=== PATIENT | male | born 1945 | race Hispanic/Latino ===

== ENCOUNTER 2016-10-01 07:11 | Inpatient (IN) | payer MEDICARE, OTHER ==
[2016-10-01 07:55] LABS: Basophils % (Auto) 0.6 % (0.0-1.8); Eosinophils % (Auto) 2.4 % (0.0-4.3); Hematocrit 43.6 % (35.5-45.6); Hemoglobin 14.7 gm/dl (11.8-15.2); Mean Corpuscular HGB Conc 34 % (32-34); Mean Corpuscular Hemoglobin 30 pg (28-32); Mean Corpuscular Volume 88 fl (84-94); Platelet Count 199 K/mm3 (140-440); Red Blood Count 4.96 M/mm3 (3.65-5.03); Red Cell Distribution Width 14.5 % (13.2-15.2); White Blood Count 9.2 K/mm3 (4.5-11.0)
[2016-10-01] MEDS ORDERED: NACL 0.9% 500 ML 500 ML IV SCH (08:00)
[2016-10-01 08:06] LABS: INR 1.03 (0.87-1.13)
[2016-10-01 08:12] LABS: Anion Gap 16 mmol/L; Blood Urea Nitrogen 18 mg/dL (9-20); Calcium 9.1 mg/dL (8.4-10.2); Carbon Dioxide 24 mmol/L (22-30); Chloride 98.7 mmol/L (98-107); Glucose 143 mg/dL (75-100); Sodium 135 mmol/L (137-145)
[2016-10-01] MEDS ORDERED: HEPARIN/NS 5000 UNIT/500ML(CATH LAB) 1,000 ML IR ONE (08:33)
[2016-10-01] MEDS ORDERED: NITROGLYCERIN SYRINGE 3 ML ONE (08:38)
[2016-10-01] MEDS: XYLOCAINE 2% INFILTRATI ONE ×2 (08:52→09:08)
[2016-10-01] MEDS: SUBLIMAZE ONE ×2 (08:52→09:05)
[2016-10-01] MEDS: CALAN ONE ×2 (08:52→19:05)
[2016-10-01] MEDS: VERSED ONE ×2 (08:52→09:05)
[2016-10-01] MEDS: HEPARIN 10,000 UNITS/10 ML ONE ×2 (08:53→19:05)
[2016-10-01] MEDS ORDERED: NACL 0.9% 100 ML ONE (09:20)
[2016-10-01] MEDS ORDERED: WATER FOR INJ (PF) 10 ML ONE (09:20)
[2016-10-01] MEDS ORDERED: NACL 0.9% 1000 ML 1,000 ML ONE (09:27)
[2016-10-01] MEDS: ANGIOMAX IV ONE ×2 (09:30→09:38)
[2016-10-01] MEDS ORDERED: PLAVIX ONE (09:36)
[2016-10-01] MEDS ORDERED: ALUM-MAG HYDROX-SIMETH 200-200-20MG/5ML ONE (09:36)
[2016-10-01] MEDS ORDERED: ULTRAM PO PRN (10:28)
[2016-10-01] MEDS ORDERED: AMBIEN PO PRN (10:28)
[2016-10-01] MEDS ORDERED: ZOFRAN IV PRN (10:28)
[2016-10-01] MEDS ORDERED: NACL 0.9% 1000 ML 1,000 ML IV SCH (11:00)
[2016-10-01] MEDS ORDERED: D50W (25GM) IV PRN (11:13)
--- NOTE | 2016-10-01 11:31 | Cardiac Catherization Report ---
LEFT HEART CATHETERIZATION/PERCUTANEOUS CORONARY PORT/MAMMARY INJECTION AND SVG GRAFT INJECTIONS CLINICAL INFORMATION: This is a 71-year-old gentleman with history of smoker, hypertension, hyperlipidemia, 10 years ago had bypass, KOVACS to LAD, SVG to OM1, SVG to OM2 and SVG to PDA has peripheral vascular disease has claudication symptoms a smoker, also has shortness of breath with exertion with inferior defect on stress test with normal IV function. The patient is on aspirin, beta-dustin, and also history of pacemaker. Left heart catheterization performed via the right common femoral artery, sterile technique, local anesthesia, 5-Pakistani groin sheath inserted. FINDINGS: 1. Left system and JL4 catheter, left main is a medium caliber vessel, mid 60% lesion. Circ ostial is 100%, LAD proximal 70%, and a mid 100%. RCA engaged with JR4 catheter, has a dominant vessel small caliber vessel, mid diffuse 80%. 2. SVG to PDA engaged with a JR4 catheter, is a large caliber graft, free of disease of the ostium at the body. There is a focal 80% lesion. Distal to PDA is patent, feeds into a small caliber PDA and PLV that is patent. 3. SVG to OM1 engaged with JR4, is a large caliber graft with mild luminal irregularities from the ostium, body, and anastomosis site feeding into small caliber OM1. 4. SVG to OM2 engaged with JR4 catheter, is a large caliber graft at the proximal diffuse 40 to 50% lesion smooth. The rest of the graft is free of disease from the mid to the distal anastomosis site feeding into a small to medium caliber OM2. 5. KOVACS to LAD was engaged with IM catheter, large caliber graft, free of disease at the ostium, body, and anastomosis site, feeds into the mid LAD with good retrograde and anterograde flow into small to medium caliber LAD and small diagonal. 6. LV gram done in the SERBIAN and PARKER view shows normal LV function. LVEDP of 4 mmHg. LV is 122/40. Aortic is 170/45. No gradient across the aortic valve on pullback. A percutaneous coronary intervention, SVG graft to PDA in view of patient's shortness of breath with exertion, Weston classification 3 on beta-dustin therapy and inferior defect proceeded with PCI as a 5-[place]istani groin sheath change out for 6-Pakistani groin sheath. Left system SVG graft engaged with a 6-[place]istani JR4 collaterals #2 crossed into the distal lesion with short Bessemer wire. 7. Using a distal protection device filter [id number]. 8. Direct stented with a drug-eluting Xience 3.5 x 12 at 12 atmospheres. 9. Repeat excellent angiographic result. No dissection or perforation, embolization noted. 10. Retrieved the distal protection device. 11. Repeat angiogram. Excellent angiographic results continued ISA 3 flow, reduced stenosis 0%. Chest pain free. 12. A 6-[place]istani guiding catheter sewn with guidewire, 6-Pakistani groin sheath was sewn. SUMMARY: 1. Successful PCI of the SVG graft to the PDA with a drug-eluting Xience 3.5 x 12 using a distal protection device. 2. Patent KOVACS to LAD and patent SVG graft to OM1. 3. SVG graft to OM2 as a diffuse proximal 40-50%, no catheter dampening noted and goes on OM2. 4. Left main, 60% LAD mid 100%, Circ ostial was 100%. RCA mid 80% with normal LV function. 5. The patient received 600 Plavix. Post-Cath care will be on aspirin and Plavix therapy. Discussed this in detail with the patient and the patient's family. JOB# [id number] DEBRA/TAI
--- NOTE | 2016-10-01 12:12 | Cardiac Catherization Report ---
LEFT HEART CATHETERIZATION CLINICAL INFORMATION: This 71-year-old is here for peripheral angiogram. This is a 71-year-old gentleman with known history of peripheral vascular disease with right iliac stenting who has been having claudication symptoms and shortness of breath, has history known bypass and 4-vessel and is here for peripheral angiogram. Peripheral angiogram performed via the left common femoral artery, sterile technique, local is a 5-[place] groin sheath inserted. Pigtail catheter was placed in the distal abdominal aorta and runoff was done and the following findings; 1. Distal abdominal patent mild luminal irregularities. Right common iliac stent is 100% due to extensive collateralization feeding into the right external iliac and internal iliac that are patent. The left common iliac has a 30% lesion and rest is patent. Left external and internal iliac patent. 1. Bilateral common femoral artery and bilateral SFA are patent. 2. Bilateral popliteals are patent. 3. Right anterior tibial, posterior tibial, and faint flow, but appeared to be patent. 4. Left anterior tibial and posterior tibial appeared to be patent. 5. A 5-[place] catheters were taken over a guidewire. No hematoma. No bleeding. SUMMARY: 1. The patient has 100% in-stent restenosis of right common iliac stent placed 10 years ago with extensive collateralization feeding into the right external and internal iliac artery with right SFA and popliteal two-vessel runoff patent. 2. Left common iliac has a 30% lesion with left SFA patent and popliteal patent with two-vessel runoff. 3. We discussed with the patient and the patient's family possible intervention of the iliac arteries. [facility]# [id number] DEBRA/TAI TAVAREZ
--- NOTE | 2016-10-01 16:46 | Admit Criteria Form ---
Admission Criteria Documentation: TELEMETRY CARE Telemetry Admission Guidelines (Place 'X' for any and all applicable criteria): Admission to telemetry [A] may be indicated for ANY ONE of the following(1)(2)(3 )(4)(5): [X ]I. Cardiac disease, including ANY ONE of the following (9)(10)(11)(12)( 13): [ ]a) Postacute AL [ ]b) Low-risk patients with ST-segment elevation AL who have undergone successful percutaneous coronary intervention [ ]c) Unstable angina [ ]d) Suspected AL (until it is ruled out) [ ]e) Post cardiac surgery (first 48 to 72 hours unless complications occur) [ ]f) Acute arrhythmias (including significant tachycardia or bradycardia) [B] [ ]g) Firing of an implantable cardioverter defibrillator [C] [ ]h) Suspected pacemaker or implantable cardioverter defibrillator malfunction (10) [ ]i) New administration or adjustment of an antiarrhythmic drug [D ] [ ]j) Child admitted for acute congestive heart failure [ ]j) Long QT syndrome [ ]k) Advanced heart block (eg, second-degree Mobitz type II, third- degree heart block) [ ]l) Acute myocarditis or pericarditis [X ]m) Short-term (ambulatory or inpatient) monitoring after a cardiac procedure as indicated by ANY ONE of the following [E]: [ ]i) Electrophysiologic studies [ X]ii) Percutaneous coronary intervention with stent placement [ ]iii) Pacemaker placement with cardiac conduction defect [ ]iv) Implantable cardiac defibrillator placement [ ]II. Drug overdose or poisoning with substance that causes arrhythmias or QT prolongation (eg, phenothiazines, sympathomimetic agents, cyclic antidepressants, digitalis, antiarrhythmic drugs)(15) [ ]III. Short-term (ambulatory or inpatient) monitoring after therapeutic or diagnostic procedure requiring conscious sedation or anesthesia (eg, endoscopy, elective cardioversion) [ ]IV. Acute cerebrovascular even[F](18) [ ]V. Massive blood transfusion (eg, at least 10 units of packed red blood cells in 24 hours) [ ]. Variceal bleeding after endoscopy, sclerotherapy, or IV vasopressin [ ]VII. Uncorrected electrolyte abnormalities associated with an increased risk of dangerous arrhythmia [G]; examples include [ ]a) Hyperkalemia with attributable ECG changes [ ]b) Potassium greater than 6.5 mmol/L (mEq/L) in a patient without history of chronic renal disease [ ]c) Prolonged QT attributed to hypokalemia, hypomagnesemia, or hypocalcemia [ ]VIII.Unexplained syncope or other neurologic event suspected of being due to arrhythmia due to a finding that increases risk; examples include(19)(20)(21): [ ]a) High-risk ECG findings (eg, bifascicular block, bradycardia, abnormal QT interval, ventricular pre- excitation) [ ]b) History of previous syncope due to arrhythmia [ ]c) Abnormal ventricular function (eg, reduced ejection fraction ) [ ]d) Exertional or supine syncope [ ]e) Concerning syncope characteristics (eg, sudden loss of consciousness without prodrome) [ ]f) Family history of sudden [ ]g) Use of arrhythmogenic medication [ ]h) Suspected cardiac ischemia [ ]i) Known channelopathy (eg, long QT syndrome, Brugada syndrome, or catecholaminergic paroxysmal ventricular tachycardia) [ ]j) Known structural heart disease (eg, hypertrophic cardiomyopathy , severe valvular disease) [ ]k) Palpitations preceding syncope The original [facility] content created by [employer] has been revised. The portions of the content which have been revised are identified through the use of italic text or in bold, and [facility] has neither reviewed nor approved the modified material. All other unmodified content is copyright [employer]. Please see references footnoted in the original [employer] edition 2016 Admission Criteria Met: Yes
[2016-10-01] MEDS: TRADJENTA PO SCH (23:21)
[2016-10-01] MEDS: ZESTRIL PO SCH (23:22)
[2016-10-02 06:01] LABS: Basophils % (Auto) 0.7 % (0.0-1.8); Eosinophils % (Auto) 3.9 % (0.0-4.3); Hemoglobin 14.1 gm/dl (11.8-15.2); Mean Corpuscular HGB Conc 34 % (32-34); Mean Corpuscular Hemoglobin 29 pg (28-32); Mean Corpuscular Volume 87 fl (84-94); Platelet Count 184 K/mm3 (140-440); Red Blood Count 4.83 M/mm3 (3.65-5.03); Red Cell Distribution Width 14.4 % (13.2-15.2); White Blood Count 7.7 K/mm3 (4.5-11.0)
[2016-10-02 06:18] LABS: Creatine Kinase MB 2.4 ng/mL (0.0-4.0)
[2016-10-02 06:19] LABS: Anion Gap 16 mmol/L; Blood Urea Nitrogen 14 mg/dL (9-20); Calcium 8.5 mg/dL (8.4-10.2); Carbon Dioxide 25 mmol/L (22-30); Chloride 101.1 mmol/L (98-107); Creatine Kinase 77 units/L (55-170); Glucose 131 mg/dL (75-100); Potassium 4.7 mmol/L (3.6-5.0); Sodium 137 mmol/L (137-145)
--- NOTE | 2016-10-02 08:54 | XRay Report ---
Portable chest: Post PCI. The lungs are hyperinflated. There is a generally coarse interstitial pattern. There is no vascular congestion. Coronary bypass changes are present as well as a bipolar pacemaker with intact wires. No prior study for comparison. Impression: 1. CABG changes with pacemaker. 2. Chronic lung disease.
[2016-10-02 09:11] VITALS: BP 145/65
[2016-10-02] MEDS ORDERED: ISORDIL TITRADOSE PO SCH (10:00)
[2016-10-02] MEDS ORDERED: BABY ASPIRIN PO SCH (10:00)
[2016-10-02] MEDS ORDERED: FLOMAX PO SCH (10:00)
[2016-10-02] MEDS ORDERED: PLAVIX PO SCH (10:00)
[2016-10-02] MEDS ORDERED: NON-FORMULARY (Saxagliptin Hcl [Onglyza] 5 MG) PO SCH (10:00)
--- NOTE | 2016-10-02 10:03 | Short Stay Summary ---
Short Stay Documentation Date of service: 10/02/16 - History H&P: obtained from office - Allergies and Medications Current Medications: Allergies metronidazole [From Flagyl] Adverse Reaction (Verified 10/01/16 07:36) Unknown Home Medications Medication Instructions Recorded Confirmed Last Taken Type Aspirin EC [Aspirin Enteric Coated 325 mg PO QDAY 10/01/16 10/01/16 09/30/16 History TAB] AtorvaSTATin [Lipitor] 60 mg PO QDAY 10/01/16 10/01/16 09/30/16 History Lisinopril [Zestril TAB] 10 mg PO QDAY 10/01/16 10/01/16 09/30/16 History Saxagliptin HCl [Onglyza] 5 mg PO QDAY 10/01/16 10/01/16 09/30/16 History Tamsulosin [Flomax] 0.4 mg PO QDAY 10/01/16 10/01/16 09/30/16 History Active Medications Aspirin (Baby Aspirin) 81 mg PO QDAY [facility] Atorvastatin Calcium (Lipitor) 60 mg PO HS [facility] Clopidogrel Bisulfate (Plavix) 75 mg PO QDAY [facility] Dextrose (D50w (25gm)) 50 ml IV PRN PRN PRN Reason: Hypoglycemia Insulin Human Regular (Novolin R) 0 units SUB-Q ACHS [facility] PRN Reason: Protocol Last Admin: 10/02/16 09:58 Dose: Not Given Isosorbide Dinitrate (Isordil Titradose) 10 mg PO BID [facility] Linagliptin (Tradjenta) 5 mg PO QDAY [facility] Last Admin: 10/01/16 23:21 Dose: Not Given Lisinopril (Zestril) 10 mg PO QDAY [facility] Last Admin: 10/01/16 23:22 Dose: Not Given Ondansetron HCl (Zofran) 4 mg IV Q8H PRN PRN Reason: N/V unrelieved by Reglan Tamsulosin HCl (Flomax) 0.4 mg PO QDAY [facility] Tramadol HCl (Ultram) 50 mg PO Q4H PRN PRN Reason: Pain, Mild (1-3) Zolpidem Tartrate (Ambien) 5 mg PO QHS PRN PRN Reason: Sleep - Brief post op/procedure progress note Date of procedure: 10/01/16 Pre-op diagnosis: CAD Post-op diagnosis: same Procedure: please see dictated cath report Anesthesia: local Estimated blood loss: none Pathology: none Condition: stable - Hospital course Hospital course: Pt is a 71 YO male with a past medical history significant for CAD, s/p CABG, PVD, HTN, HLP, and tobacco use. He presented on 10/01/2016 for scheduled elective LHC and peripheral angiogram and subsequently received PCI of SVG graft to the PDA per Dr. Hopson. He remained clinically and hemodynamically stable throughout his procedure and overnight and is cleared for discharge home today. He is to follow up in our [place] office with Dr. Hopson on 10/22/2016 @ 1: 45PM. - Disposition Condition at discharge: Stable Disposition: DISCHARGED TO HOME OR SELFCARE - Discharge Diagnoses (1) CAD (coronary artery disease) Status: Chronic Qualifiers: Coronary Disease-Associated Artery/Lesion type: C [place] vs. transplanted heart: N Associated angina: A (2) HTN (hypertension) Status: Chronic Qualifiers: Hypertension type: H (3) Hyperlipidemia Status: Chronic Qualifiers: Hyperlipidemia type: H (4) PVD (peripheral vascular disease) Status: Chronic (5) Tobacco use Status: Chronic Short Stay Discharge Plan Activity: advance as tolerated Weight Bearing Status: Full Weight Bearing Diet: low fat, low cholesterol, low salt Wound: open to air, keep clean and dry Follow up with: GAURI HOPSON MD [Staff Physician] - 7 Days (Follow up in our [place] office with Dr. Hopson on 10/22/2016 @ 1:45PM. ) Prescriptions: Clopidogrel [Plavix] 75 mg PO QDAY #30 tablet Isosorbide Dinitrate [Isordil Titradose] 10 mg PO BID #60 tablet
[2016-10-02] MEDS: TRADJENTA PO SCH (11:06)
[2016-10-02] MEDS: ZESTRIL PO SCH (11:07)
== END 2016-10-02 11:43 | disposition home or self-care (01) | DRG 247 ==
LOC: OPU 07:11 → 4A 10:28
PROVIDERS: ADMIT Internal Medicine; ATTEND Internal Medicine
PROC: 027134Z Dilation of Coronary Artery, Two Arteries with Drug-eluting Intraluminal Device, Percutaneous Approach (ICD-10-PCS; principal; 2016-10-02)
PROC: 4A023N7 Measurement of Cardiac Sampling and Pressure, Left Heart, Percutaneous Approach (ICD-10-PCS; 2016-10-02)
PROC: B2111ZZ Fluoroscopy of Multiple Coronary Arteries using Low Osmolar Contrast (ICD-10-PCS; 2016-10-02)
PROC: B2151ZZ Fluoroscopy of Left Heart using Low Osmolar Contrast (ICD-10-PCS; 2016-10-02)
DX: T82.855A Stenosis of coronary artery stent, initial encounter (principal); I25.812 Atherosclerosis of bypass graft of coronary artery of transplanted heart without angina pectoris; E78.2 Mixed hyperlipidemia; F17.200 Nicotine dependence, unspecified, uncomplicated; I12.9 Hypertensive chronic kidney disease with stage 1 through stage 4 chronic kidney disease, or unspecified chronic kidney disease; I27.2 Other secondary pulmonary hypertension; I70.211 Atherosclerosis of native arteries of extremities with intermittent claudication, right leg; N18.2 Chronic kidney disease, stage 2 (mild); E11.51 Type 2 diabetes mellitus with diabetic peripheral angiopathy without gangrene; Z88.8 Allergy status to other drugs, medicaments and biological substances
CPT/HCPCS: 36200; 36415; 71010; 75630; 80048; 82550; 82553; 82962; 84484; 85025; 85347; 85610; 85730; 92937; 93005; 93010; 93459; C1769; C1874; C1884; C1887; C1894; C9604; J0583; J1644; J1815; J2250; J3010; J7030; J7040; Q9967